=== PATIENT | female | born 1980 | race Caucasian/White ===

== ENCOUNTER → 2019-11-18 | Outpatient (CLI) | payer BC | END | disposition home or self-care (01) | LOC: LABWHC1 13:09 | PROVIDERS: ATTEND Emergency Medicine | DX: Z20.828 Contact with and (suspected) exposure to other viral communicable diseases (principal) | CPT/HCPCS: U0003; C9803 ==

== ENCOUNTER → 2020-07-29 | Outpatient (CLI) | payer BC ==
--- NOTE | 2020-07-31 09:19 | MM ---
Reason for exam: screening (asymptomatic). Baseline mammogram. Physical Findings: Nurse Summary: 1cm nodule in the left breast at 8 o'clock (nurse mj). MG Screening Mammo w CAD Bilateral CC and MLO view(s) were taken. The breast tissue is heterogeneously dense. This may lower the sensitivity of mammography. Focal asymmetry inner central left breast zone C. Nodule left breast. Ultrasound recommended. These results were verbally communicated with the patient and result sheet given to the patient on 07/29/20. ASSESSMENT: Incomplete: need additional imaging evaluation, BI-RAD 0 RECOMMENDATION: Special view mammogram and ultrasound of the left breast.
--- NOTE | 2020-07-31 09:51 | MM ---
Reason for exam: additional evaluation requested from abnormal screening. Physical Findings: Breast exam preformed at baseline screening. MG Work Up Mamm w CAD LT Spot compression CC, spot compression MLO, and LM view(s) were taken of the left breast. Density 10-11 o'clock persists but is less conspicuous. Ultrasound recommended. These results were verbally communicated with the patient and result sheet given to the patient on 07/29/20. ASSESSMENT: Incomplete: need additional imaging evaluation, BI-RAD 0 RECOMMENDATION: Ultrasound of the left breast.
--- NOTE | 2020-07-31 10:08 | USB ---
Reason for exam: additional evaluation requested from abnormal screening. US Breast Workup Limited LT Left limited breast ultrasound including focal area of concern, retroareolar and axilla demonstrates a 1.8 x 1.0 x 1.3cm hypoechoic lesion at 8 o'clock and a 0.8 x 0.3 x 0.7cm mixed lesion at 12 o'clock. These results were verbally communicated with the patient and result sheet given to the patient on 07/29/20. ASSESSMENT: Suspicious, BI-RAD 4 RECOMMENDATION: Ultrasound core biopsy of the left breast. Called Dr. Taylor's office with mammographic findings and has scheduled an appointment for the patient for 08/13/20 at 12:[address] Patel. Biopsy scheduled for 08/20/20 at 1:00. PRELIMINARY REPORT CALLED AND FAXED TO DR. PATEL ON 07/29/20.
== END | disposition home or self-care (01) ==
LOC: RADMAMWWP 13:19
PROVIDERS: ATTEND Family Medicine
DX: Z12.31 Encounter for screening mammogram for malignant neoplasm of breast (principal); R92.8 Other abnormal and inconclusive findings on diagnostic imaging of breast; R92.2 Inconclusive mammogram; N63.24 Unspecified lump in the left breast, lower inner quadrant
CPT/HCPCS: 77065; 77067

== ENCOUNTER → 2020-08-13 | Outpatient (CLI) | payer BC ==
[2020-08-13 12:39] VITALS: BP 126/86; PULSE 71; RESP 18; TEMP 98.2
--- NOTE | 2020-08-13 13:03 | P.GSHP ---
History of Present Illness H&P Date: 08/13/20 Chief Complaint: abnormal left bresat ultrasound Елена is a 40 year old white female seen in consultation for DR. Taylor regarding a left breast ultrasound abnormality. She states that she was able to feel now in her left breast in the area of nodularity ultrasound showed a lesion. Otherwise did not feel any lumps masses or nodules of concern in either breast. She is not complaining of any nipple discharge. She has not had any recent trauma or infection in the breast. She has never had any breast surgery. 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 BCP: 2 years Surgical history: laproscopic knee surgery eye surgery/ tear duct at 1 Medical history: none Social History; 1/2 PPD 20 years alcohol: occasional drugs: none - Constitutional Constitutional: Reports sweats - EENT Comment: as per HPI Eyes: denies blurred vision, denies pain Ears: bilateral: tinnitus Ears, nose, mouth and throat: Denies headache, Denies sore throat - Breasts Breasts: bilateral: as per HPI - Cardiovascular Cardiovascular: Denies chest pain, Denies shortness of breath - Respiratory Respiratory: Denies cough, Denies 7 - Gastrointestinal Gastrointestinal: Denies abdominal pain, Denies diarrhea, Denies nausea, Denies vomiting - Genitourinary (Female) Genitourinary: Denies dysuria, Denies hematuria - Menstruation Menstruation: Reports as per HPI - Musculoskeletal Musculoskeletal: Denies myalgias - Integumentary Integumentary: Reports rash, Denies pruritus - Neurological Neurological: Denies numbness, Denies weakness - Psychiatric Psychiatric: Denies anxiety, Denies depression - Endocrine Endocrine: Denies fatigue, Denies weight change - Hematologic/Lymphatic Comment: none - Allergic/Immunologic Allergic/Immunologic: Reports seasonal allergies Past Medical History History of Any Multi-Drug Resistant Organisms: None Reported Smoking Status: Current every day smoker Medications and Allergies Home Medications Medication Instructions Recorded Confirmed Type Ibuprofen 200 mg PO Q6H PRN 08/13/20 08/13/20 History Multivitamin [Multivitamins Adult 1 each PO DAILY 08/13/20 08/13/20 History Gummies] Allergies Allergy/AdvReac Type Severity Reaction Status Date / Time No Known Allergies Allergy Verified 08/13/20 12:34 Surgical - Exam Vital Signs Temp Pulse Resp BP Pulse Ox 98.2 F 71 18 126/86 99 08/13/20 12:36 08/13/20 12:36 08/13/20 12:36 08/13/20 12:36 08/13/20 12:36 BMI 30.5 - General no distress - Eyes normal ocular movement - ENT no hearing loss - Neck no masses, trachea midline - Respiratory normal expansion, normal respiratory effort, clear to auscultation - Cardiovascular Rhythm: regular Heart Sounds: normal: S1, S2 - Abdomen Abdomen: soft - Integumentary normal turgor - Neurologic no disoriented, no combative - Musculoskeletal normal gait - Psychiatric oriented to time, oriented to person, oriented to place, speech is normal, memory intact Breast exam: BRA: 38D inspection: grade 3 ptosis bilateral, right breast larger than left breast, fungal infection in the right breast palpation: right breast: Multi-positional exam fibrocystic changes, no dominant masses or nodules of concern Right axilla: No adenopathy of concern Fungal infection under right breast Left breast: Multiple positional exam fibrocystic changes, mass approximately 1 x 1 cm in size at 8 o'clock position Her dominant masses or nodules of concern Left axilla: No adenopathy of concern Results Mammogram and ultrasound independently reviewed Assessment and Plan Assessment: Impression: 1. Abnormal left breast mammogram and ultrasound 2. Palpable mass left breast at 8:00 3. Fibrocystic breast changes 4. Fungal infection under right breast Plan: 1. Ultrasound-guided core biopsy left breast ultrasound abnormality corresponds with palpable abnormality 2. Nystatin under right breast 3. Follow-up after core biopsy Risk and benefits of procedure discussed with the patient. She understands and wishes to proceed. This is scheduled for the near future. Cc: Dr. Taylor
== END ==
LOC: WWCWWP 12:19
PROVIDERS: ATTEND Surgery
DX: N60.12 Diffuse cystic mastopathy of left breast (principal); N60.11 Diffuse cystic mastopathy of right breast; B36.9 Superficial mycosis, unspecified; F17.210 Nicotine dependence, cigarettes, uncomplicated

== ENCOUNTER → 2020-08-20 | Day surgery (SDC) | payer BC ==
[2020-08-20 12:12] VITALS: RESP 16; TEMP 98
[2020-08-20 13:56] VITALS: BP 149/88; PULSE 72
--- NOTE | 2020-08-20 14:05 | USB ---
EXAMINATION TYPE: US biopsy breast VAD LT DATE OF EXAM: 08/20/2020 CLINICAL HISTORY: R92.8, Abnormal mammogram. TECHNIQUE: Ultrasound guided core biopsy of left breast. COMPARISON: NONE FINDINGS: The procedure of ultrasound guided core biopsy was explained to the patient. Benefits, alternatives, and risks were discussed. An informed consent was then obtained. The patient was placed in supine positioning for imaging and for the procedure. The overlying skin was prepped and draped in usual sterile fashion. Lidocaine buffered with bicarbonate was used as anesthetic into the skin and subcutaneous tissue up to area of concern in the left breast at 8:00, zone 8. A skin dasia was made with surgical scalpel. Under ultrasound guidance, a 12-gauge vacuum assisted biopsy gun device was used to obtain 3 core samples. Following this, a biopsy clip was left in lesion. The patient tolerated the procedure well without any immediate complication. The patient was kept in the radiology department for short stay after the procedure and then discharged home in stable condition. IMPRESSION: Successful, uncomplicated ultrasound guided core biopsy of area of concern in the left breast. Full pathology results will follow. Pathology Results: Benign LEFT BREAST, 8:00, ULTRASOUND GUIDED CORE BIOPSY: Fibroadenoma. Recommendation Follow up mammogram of the left breast in 6 months. MARTHA
--- NOTE | 2020-08-20 14:15 | MM ---
Reason for exam: additional evaluation requested from abnormal screening. Last mammogram was performed 1 month ago. MG Diagnostic Mammo LT Wo CAD CC and LM view(s) were taken of the left breast. Prior study comparison: July 29, 2020, left breast MG work up mamm w CAD LT. July 29, 2020, bilateral MG screening mammo w CAD. ASSESSMENT: Post procedure mammogram for marker placement RECOMMENDATION: Ultrasound of the left breast in 6 months. PENDING PATHOLOGY RESULTS.
== END ==
LOC: RADUSWWP 12:00
PROVIDERS: ATTEND Surgery
DX: D24.2 Benign neoplasm of left breast (principal); R92.8 Other abnormal and inconclusive findings on diagnostic imaging of breast
CPT/HCPCS: 88305; 77065; 19083; A4648; J2001

== ENCOUNTER → 2020-08-27 | Outpatient (CLI) | payer BC ==
[2020-08-27 14:18] VITALS: BP 119/82; PULSE 79; RESP 18; TEMP 98
--- NOTE | 2020-08-27 14:31 | P.PN ---
Subjective Progress Note Date: 08/27/20 Principal diagnosis: fibroadenoma on core biopsy of the left breast Елена is a 40-year-old white female status post ultrasound-guided core biopsy of the left breast [place] [id number]. Pathology was consistent with a fibroadenoma. She tolerated the procedure with no difficulty. He states that the area is increasing in size and is tender to palpation. Surgical history: Laparoscopic knee surgery I surgery tear duct Medical history: Negative Social history: One half pack per day for 20 years Alcohol: Occasional Drugs: Negative Review of systems: Night sweats HEENT: Negative Breasts: As per HPI Respiratory: Smoker denies cough Cardiovascular: Negative GI: Negative : Negative Musculoskeletal: Negative Neurologic: Negative Psychiatric: Negative Endocrine: Negative Hematologic: Negative ALLERGIES: Seasonal ALLERGIES Objective - Vital Signs Vital signs: Vital Signs Temp 98.0 F 08/27/20 13:54 Pulse 79 08/27/20 13:54 Resp 18 08/27/20 13:54 BP 119/82 08/27/20 13:54 Pulse Ox 99 08/27/20 13:54 Intake & Output 08/26/20 08/27/20 08/27/20 18:59 06:59 18:59 Weight 75.296 kg - Constitutional General appearance: Present: average body habitus - EENT Eyes: Present: EOMI ENT: Present: hearing grossly normal - Neck Neck: Present: normal ROM - Respiratory Respiratory: bilateral: CTA - Cardiovascular Rhythm: regular Heart sounds: normal: S1, S2 - Integumentary Integumentary Comment(s): Biopsy site left breast mild ecchymosis, no evidence of infection or hematoma Integumentary: Present: normal turgor - Musculoskeletal Musculoskeletal: Present: gait normal - Psychiatric Psychiatric: Present: A&O x's 3, appropriate affect, intact judgment & insight - Additional findings Additional findings: Breast examination: Block: 30 8D Inspection: Grade 3 ptosis bilateral, right breast larger than left, fungal infection which was noted prior under the right breast has healed Palpation: From prior exam Right breast: Multiple positional exam fibrocystic changes no dominant masses or nodules of concern Right axilla: No adenopathy of concern Fungal infection is resolved Left breast: Patient has ecchymosis and changes in her biopsy site but no evidence of infection or hematoma remains a persistent 1 x 1 cm in size nodule which is tender at 8:00 consistent with a fibroadenoma Left axilla: No adenopathy of concern Mammogram and ultrasound were reviewed Bilateral mammogram 5721 additional views of the left breast recommended [id number] additional views of the left breast as well as an ultrasound performed an ultrasound core biopsy recommended this was consistent with a fibroadenoma Assessment and Plan Assessment: Impression: 1. Fibrocystic breast changes 2. Fibroadenoma symptomatic increasing in size and tender left breast Plan: 1. Excision fibroadenoma left breast possible onco-plastic tissue transfer, not interested in a mastopexy 2. Left breast mammogram 6 months after resection Risks and benefits of the procedure discussed with the patient. She understands and wishes to proceed. She understands this is not cancer and she does not have to have this removed however she finds it bothersome and is increasing in size and is painful and therefore she wishes it to be removed. Risk include but are not limited to bleeding, infection, reaction to the anesthetic. Cc: Dr. Taylor
== END ==
LOC: WWCWWP 13:54
PROVIDERS: ATTEND Surgery
DX: D24.2 Benign neoplasm of left breast (principal); N60.11 Diffuse cystic mastopathy of right breast; F17.210 Nicotine dependence, cigarettes, uncomplicated; Z98.890 Other specified postprocedural states

== ENCOUNTER → 2020-10-16 | Outpatient (CLI) | payer OTHER ==
--- NOTE | 2020-10-16 11:22 | XR ---
EXAMINATION TYPE: XR hand complete RT DATE OF EXAM: 10/16/2020 COMPARISON: None HISTORY: Contusion right hand TECHNIQUE: 3 view right hand FINDINGS: No acute fractures are evident. Joint spaces are preserved. Soft tissues are normal. Follow up exams can be performed 7-10 days from acute trauma for continued pain. IMPRESSION: 1. Normal three-view right hand
--- NOTE | 2020-10-16 11:24 | XR ---
EXAMINATION TYPE: XR wrist complete RT DATE OF EXAM: 10/16/2020 COMPARISON: None HISTORY: Pain TECHNIQUE: 3 view right wrist FINDINGS: No acute fractures or dislocations are evident. Joint spaces are preserved. Soft tissues ar e normal. If there is pain at the anatomic snuff box, nuclear medicine bone scan could be performed for additio nal evaluation. Follow up exams can be performed 7-10 days from acute trauma for continued pain. IMPRESSION: 1. Normal three-view right wrist
--- NOTE | 2020-10-16 11:26 | XR ---
EXAMINATION TYPE: XR forearm RT DATE OF EXAM: 10/16/2020 COMPARISON: None HISTORY: Pain TECHNIQUE: 2 view right forearm FINDINGS: Radius and ulna appear intact. Joint spaces appear preserved. No acute fracture or dislocat ion is evident. Soft tissues appear normal. Follow up exams can be performed 7-10 days from acute trauma for continued pain. IMPRESSION: 1. Normal 2 view right forearm
== END | disposition home or self-care (01) ==
LOC: RADXRMAIN 10:34
PROVIDERS: ATTEND Emergency Medicine
DX: S60.221A Contusion of right hand, initial encounter (principal); M25.531 Pain in right wrist; M79.631 Pain in right forearm

== ENCOUNTER → 2020-11-06 | Outpatient (CLI) | payer BC ==
[2020-11-06 15:43] VITALS: BP 118/81; PULSE 92; RESP 18; TEMP 98.3
--- NOTE | 2020-11-06 15:50 | P.PN ---
Subjective Progress Note Date: 11/06/20 Principal diagnosis: symptomatic fibroadenoma left breast fibroadenoma on core biopsy of the left breast Елена is a 40-year-old white female status post ultrasound-guided core biopsy of the left breast [place] [address]. Pathology was consistent with a fibroadenoma. She tolerated the procedure with no difficulty. He states that the area is increasing in size and is tender to palpation. She had a bilateral screening mammogram on 5521 this led to additional studies of the left breast. This showed a focal asymmetric and her central left breast lesion. This led to an ultrasound revealing a 1.8-1.3 cm lesion at 8:00 for which core biopsy was recommended. Core biopsy was performed and [id number] which was consistent with a fibroadenoma. Surgical history: Laparoscopic knee surgery I surgery tear duct Medical history: Negative Social history: One half pack per day for 20 years Alcohol: Occasional Drugs: Negative Review of systems: Night sweats HEENT: Negative Breasts: As per HPI Respiratory: Smoker denies cough Cardiovascular: Negative GI: Negative : Negative Musculoskeletal: Negative Neurologic: Negative Psychiatric: Negative Endocrine: Negative Hematologic: Negative ALLERGIES: Seasonal ALLERGIES Objective - Constitutional General appearance: Present: cooperative - EENT Eyes: Present: EOMI ENT: Present: hearing grossly normal - Neck Neck: Present: normal ROM - Respiratory Respiratory: bilateral: CTA - Cardiovascular Rhythm: regular Heart sounds: normal: S1, S2 - Integumentary Integumentary: Present: normal turgor - Musculoskeletal Musculoskeletal: Present: gait normal - Psychiatric Psychiatric: Present: A&O x's 3, appropriate affect, intact judgment & insight - Additional findings Additional findings: Breast exam: Block: 38 DT Inspection: Grade 2/3 ptosis bilateral Palpation: Right breast: Multiple positional exam no dominant masses or nodules of concern fibrocystic changes in Right axilla: No adenopathy of concern Left breast: Multiple positional exam approximately 2 cm firm nodule at the 8 o'clock position no other dominant masses or nodules of concern otherwise fibrocystic changes Left axilla: No adenopathy of concern Assessment and Plan Assessment: Impression: 1. Symptomatic increasing in size fibroadenoma left breast at 8:00 Plan: 1. Removal symptomatic fibroadenoma left breast, possible onco- plastic tissue transfer Risks and benefits of the procedure discussed with the patient. She understands and wishes to proceed.
== END ==
LOC: WWCWWP 15:35
PROVIDERS: ATTEND Surgery
DX: D24.2 Benign neoplasm of left breast (principal); F17.210 Nicotine dependence, cigarettes, uncomplicated

== ENCOUNTER 2020-11-24 12:35 | Day surgery (SDC) | payer BC ==
[2020-11-18 15:38] VITALS: BMI 30.2
[~2020-11-24 12:35] MED LIST: DEXAMETHASONE SOD PHOSPHATE 4 MG/ML 1 ML VIAL IV ONE; HEPARIN SODIUM,PORCINE/PF 5,000 UNIT/0.5 ML SYRINGE SQ PRN; HYDROmorphone 0.5 MG/0.5 ML SYRINGE IVP PRN; LACTATED RINGERS 1,000 ML IV SCH; MIDAZOLAM 2 MG/2 ML VIAL IV PRN; ONDANSETRON 4 MG/2 ML VIAL IVP ONE; Pre Op ABX Message 1 EACH MISC MISCELLANE ONE; SCOPOLAMINE 1.5MG/72HR PATCH TRANSDERM ONE
[2020-11-24] MEDS ORDERED: LIDOCAINE 1% (10MG/ML) FOR IV START INTRADERMA ONE (13:08)
[2020-11-24] MEDS ORDERED: PROPOFOL 10 MG/ML 20 ML VIAL IV ONE (15:36)
[2020-11-24] MEDS ORDERED: KETOROLAC 15 MG/ML 1 ML VIAL ONE (15:36)
[2020-11-24] MEDS ORDERED: LIDOCAINE 1% INJ 10MG/ML (20 ML MDV) ONE (15:36)
[2020-11-24] MEDS ORDERED: MIDAZOLAM 2 MG/2 ML VIAL ONE (15:36)
[2020-11-24] MEDS ORDERED: fentaNYL (PF) 50 MCG/ML 2 ML AMP ONE (15:36)
--- NOTE | 2020-11-24 16:17 | P.OP ---
Date of Procedure: 11/24/20 Preoperative Diagnosis: Fibroadenoma left breast 8:00 Postoperative Diagnosis: Same Procedure(s) Performed: Removal of fibroadenoma Anesthesia: RADHA Surgeon: Marika Cool Estimated Blood Loss (ml): 2 IV fluids (ml): 400 Pathology: other (fibroadenoma left breast) Condition: stable Disposition: same day Indications for Procedure: Painful fibroadenoma increasing in size left breast Operative Findings: Approximately 1 x 1.5 cm soft tissue mass left breast Description of Procedure: Елена is a 40-year-old white female who presented with an increasing painful soft tissue mass in the left breast. Biopsy was consistent with a fibroadenoma. Secondary to increasing size and pain she wished it to be removed. The patient was taken to the operating room and following induction of anesthesia the left breast was prepped and draped in a sterile fashion. Incision was made over the palpable abnormality. Approximately a 1 x 1.5 cm lesion was removed. After assured that hemostasis was attained the deep tissues were closed using 3-0 Vicryl suture. The skin was closed using 4-0 Monocryl. The patient tolerated the procedure in stable condition. It should be noted that marking clips were p laced at the site of the resection prior to closure. All instrument and sponge counts were correct at the end of the case.
--- NOTE | 2020-11-24 16:18 | P.DS ---
Providers Attending physician: Marika Cool Primary care physician: Keara Taylro MD Plan - Discharge Summary Discharge Rx Participant: No New Discharge Prescriptions: No Action Ibuprofen 200 mg PO Q6H PRN PRN Reason: Pain Multivitamin [Multivitamins Adult Gummies] 1 each PO DAILY Discharge Medication List Ibuprofen 200 mg PO Q6H PRN 08/13/20 [History] Multivitamin [Multivitamins Adult Gummies] 1 each PO DAILY 08/13/20 [History] Follow up Appointment(s)/Referral(s): Marika Cool MD [STAFF PHYSICIAN] - 12/03/20 4:00 pm Activity/Diet/Wound Care/Special Instructions: do not drive for 24 hours after discharge may shower after 48 hours wear bra at all times Discharge Disposition: HOME SELF-CARE
[2020-11-24 16:35] VITALS: TEMP 97
[2020-11-24 17:16] VITALS: RESP 18
[2020-11-24 17:28] VITALS: BP 133/67; PULSE 78
== END 2020-11-24 17:39 | disposition home or self-care (01) ==
LOC: OR 12:35
PROVIDERS: ATTEND Surgery
DX: D24.2 Benign neoplasm of left breast (principal); F17.210 Nicotine dependence, cigarettes, uncomplicated
CPT/HCPCS: 81025; 19120; J2250; J1100; J2405; J2001; J3010; J1885; J2704; J1644; 88305

== ENCOUNTER → 2020-12-04 | Outpatient (CLI) | payer BC ==
[2020-12-04 14:19] VITALS: BP 122/87; PULSE 80; RESP 18; TEMP 98
--- NOTE | 2020-12-04 14:22 | P.PN ---
Subjective Progress Note Date: 12/04/20 Principal diagnosis: Left breast fibroadenoma Елена is a 40-year-old white female status post excision of a left breast mass and [id number]. This was a fibroadenoma. She has no complaints related to the procedure. And is doing well. Objective - Vital Signs Vital signs: Vital Signs Temp 98.0 F 12/04/20 14:12 Pulse 80 12/04/20 14:12 Resp 18 12/04/20 14:12 BP 122/87 12/04/20 14:12 Pulse Ox 98 12/04/20 14:12 Intake & Output 12/03/20 12/04/20 12/04/20 18:59 06:59 18:59 Weight 74.843 kg - Constitutional General appearance: Present: cooperative - EENT Eyes: Present: EOMI - Neck Neck: Present: normal ROM - Respiratory Respiratory: bilateral: CTA - Cardiovascular Rhythm: regular Heart sounds: normal: S1, S2 - Integumentary Integumentary Comment(s): Incision clean and dry left breast no evidence of infection or hematoma Assessment and Plan Assessment: Patient status post left breast resection of symptomatic fibroadenoma at this time patient is doing well Plan: Left breast mammogram in 6 months with physician exam at that time CC: Dr. Taylor
== END ==
LOC: WWCWWP 13:48
PROVIDERS: ATTEND Surgery
DX: D24.2 Benign neoplasm of left breast (principal)

== ENCOUNTER → 2021-05-26 | Outpatient (CLI) | payer BC ==
--- NOTE | 2021-05-27 11:01 | MM ---
Reason for exam: clinical finding. Last mammogram was performed 9 months ago. History: Excisional biopsy of the left breast, October 2020. Benign US biopsy breast VAD LT of the left breast, August 20, 2020. Indicated problem(s): pain in the right breast. Physical Findings: A clinical breast exam by your physician is recommended on an annual basis and results should be correlated with mammographic findings. MG Diagnostic Mammo w CAD MICHELLE Bilateral CC and MLO view(s) were taken. Prior study comparison: August 20, 2020, left breast MG diagnostic mammo LT wo CAD. July 29, 2020, left breast MG work up mamm w CAD LT. The breast tissue is heterogeneously dense. This may lower the sensitivity of mammography. Left breast mass has been removed. No significant new findings when compared with previous films. These results were verbally communicated with the patient and result sheet given to the patient on 05/26/21. ASSESSMENT: Benign, BI-RAD 2 RECOMMENDATION: Return to routine screening mammogram schedule for both breasts. Back on schedule.
== END | disposition home or self-care (01) ==
LOC: RADMAMWWP 14:48
PROVIDERS: ATTEND Surgery
DX: R92.8 Other abnormal and inconclusive findings on diagnostic imaging of breast (principal)
CPT/HCPCS: 77066

== ENCOUNTER → 2022-06-09 | Outpatient (CLI) | payer BC ==
[2022-06-09 11:39] VITALS: BP 118/83; PULSE 89; RESP 16; TEMP 97.4
--- NOTE | 2022-06-09 12:14 | P.PN ---
Subjective Progress Note Date: 06/09/22 Principal diagnosis: fibroadenoma left breast Fibroadenoma removed left breast Елена is a 42-year-old white female status post excision of a fibroadenoma from her left breast on . At this time she is doing well, she is not complaining of any new lumps masses or nodules of concern in either breast. She had a bilateral mammogram on 3622 which was BIRADS 1. 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: 2 years Surgical history: laproscopic knee surgery eye surgery/ tear duct at 1 Medical history: none Social History; 1/2 PPD 20 years alcohol: occasional drugs: none - Constitutional Constitutional: Reports sweats - EENT Comment: as per HPI Eyes: denies blurred vision, denies pain Ears: bilateral: tinnitus Ears, nose, mouth and throat: Denies headache, Denies sore throat - Breasts Breasts: bilateral: as per HPI - Cardiovascular Cardiovascular: Denies chest pain, Denies shortness of breath - Respiratory Respiratory: Denies cough - Gastrointestinal Gastrointestinal: Denies abdominal pain, Denies diarrhea, Denies nausea, Denies vomiting - Genitourinary (Female) Genitourinary: Denies dysuria, Denies hematuria - Menstruation Menstruation: Reports as per HPI - Musculoskeletal Musculoskeletal: Denies myalgias - Integumentary Integumentary: Reports rash, Denies pruritus - Neurological Neurological: Denies numbness, Denies weakness - Psychiatric Psychiatric: Denies anxiety, Denies depression - Endocrine Endocrine: Denies fatigue, Denies weight change - Hematologic/Lymphatic Comment: none - Allergic/Immunologic Allergic/Immunologic: Reports seasonal allergies Objective - Vital Signs Vital signs: Vital Signs Temp 97.4 F L 06/09/22 11:37 Pulse 89 06/09/22 11:37 Resp 16 06/09/22 11:37 BP 118/83 06/09/22 11:37 Pulse Ox 99 06/09/22 11:37 FiO2 Intake & Output 06/08/22 06/09/22 06/09/22 18:59 06:59 18:59 Weight 79.832 kg - Constitutional General appearance: Present: cooperative - EENT Eyes: Present: EOMI ENT: Present: hearing grossly normal - Neck Neck: Present: normal ROM - Respiratory Respiratory: bilateral: CTA - Cardiovascular Rhythm: regular Heart sounds: normal: S1, S2 - Gastrointestinal General gastrointestinal: Present: soft - Integumentary Integumentary: Present: normal turgor - Musculoskeletal Musculoskeletal: Present: gait normal - Psychiatric Psychiatric: Present: A&O x's 3, appropriate affect, intact judgment & insight - Additional findings Additional findings: Breast examination: Bra: 38D Inspection: Bilateral grade 3 ptosis Palpation: Right breast: Multiple positional exam fibrocystic changes no dominant masses or nodules of concern Right axilla: No adenopathy of concern Left breast: Multiple positional exam no dominant masses or nodules of concern Left axilla: No adenopathy of concern Assessment and Plan Assessment: Impression: The cystic breast changes No evidence of recurrent fibroadenoma bilateral mammogram [id number] BIRAD 1 Plan: Bilateral mammogram in 1 year with physician exam at that time CC: Tesfaye RAMIREZ
== END ==
LOC: WWCWWP 11:28
PROVIDERS: ATTEND Surgery
DX: N60.19 Diffuse cystic mastopathy of unspecified breast (principal); D24.2 Benign neoplasm of left breast

== ENCOUNTER → 2023-06-01 | Outpatient (CLI) | payer BC ==
--- NOTE | 2023-06-02 08:26 | MM ---
Reason for Exam: Screening (asymptomatic). Last screening mammogram was performed 12 month(s) ago. Patient History: Menarche at age 12. Patient used Hormonal Contraceptives for 3 years. 10/2020, Excisional Biopsy on the Left side. 08/20/2020, Benign Core Biopsy on the left side. Last menstrual period: 05/26/2023 Risk Values: Jeimy 5 year model risk: 1.5%. NCI Lifetime model risk: 11.1%. Prior Study Comparison: 08/20/2020 Left Diagnostic Mammogram, [facility]. 05/26/2021 Bilateral Diagnostic Mammogram, [facility]. 05/30/2022 Bilateral MG screening mammo w CAD, [facility]. Tissue Density: The breasts are heterogeneously dense, which may obscure small masses. Findings: Analyzed By CAD. Asymmetric nodularity inner upper left breast 13 cm from the nipple. Additional views recommended. Benign calcifications seen right breast. Clips from prior biopsy left breast. Overall Assessment: Incomplete: need additional imaging evaluation, BI-RAD 0 Management: Diagnostic Mammogram of the left breast. . Patient should continue monthly self-breast exams. A clinical breast exam by your physician is recommended on an annual basis. This exam should not preclude additional follow-up of suspicious palpable abnormalities. Note on Jeimy scores and lifetime risk: 1. A Jeimy score greater than 3% is considered moderate risk. If this is the case, consider specialist referral to assess eligibility for a risk reducing agent. 2. If overall lifetime risk for the development of breast cancer is 20% or higher, the patient may qualify for future screening with alternating mammogram and breast MRI. Electronically signed and approved by: Jacobo Munroe M.D. Radiologis
== END | disposition home or self-care (01) ==
LOC: RADMAMWWP 09:16
PROVIDERS: ATTEND Surgery
DX: Z12.31 Encounter for screening mammogram for malignant neoplasm of breast (principal)
CPT/HCPCS: 77067

== ENCOUNTER → 2023-06-05 | Outpatient (CLI) | payer BC ==
--- NOTE | 2023-06-05 09:48 | MM ---
Reason for Exam: Additional evaluation requested from abnormal screening. Last screening mammogram was performed less than 1 month ago. Patient History: Menarche at age 12. Patient has no children. Premenopausal. Patient used Hormonal Contraceptives for 3 years. 10/2020, Excisional Biopsy on the Left side. 08/20/2020, Benign Core Biopsy on the left side. Maternal grandmother had ovarian cancer at or over age 50. Last menstrual period: 05/30/2023 Risk Values: Jeimy 5 year model risk: 2.3%. NCI Lifetime model risk: 16.7%. Prior Study Comparison: 07/29/2020 Bilateral Screening Mammogram, [facility]. 07/29/2020 Left Diagnostic Mammogram, [facility]. 08/20/2020 Left Diagnostic Mammogram, [facility]. 05/26/2021 Bilateral Diagnostic Mammogram, [facility]. 05/30/2022 Bilateral MG screening mammo w CAD, [facility]. 06/01/2023 Bilateral MG screening mammo w CAD, [facility]. Tissue Density: Left: The breasts are heterogeneously dense, which may obscure small masses. Findings: Analyzed By CAD. Asymmetric density posterior central left breast on the spot MLO and straight lateral view become less pronounced suggesting superimposition shadow. The medial posterior CC view also become less pronounced; the appearance is similar to some of the older priors. Further ultrasound evaluation recommended. Overall Assessment: Incomplete: need additional imaging evaluation, BI-RAD 0 Management: Diagnostic Breast Ultrasound of the left breast. 8-10 o'clock. Electronically signed and approved by: Antoinette Ibarra M.D. Radiologist
--- NOTE | 2023-06-05 10:26 | USB ---
Reason for Exam: Additional evaluation requested from abnormal screening. Patient History: Menarche at age 12. Patient has no children. Premenopausal. Patient used Hormonal Contraceptives for 3 years. 10/2020, Excisional Biopsy on the Left side. 08/20/2020, Benign Core Biopsy on the left side. Maternal grandmother had ovarian cancer at or over age 50. Risk Values: Jeimy 5 year model risk: 2.3%. NCI Lifetime model risk: 16.7%. Technique: Method: Targeted. Prior Study Comparison: 05/26/2021 Bilateral Diagnostic Mammogram, [facility]. 05/30/2022 Bilateral MG screening mammo w CAD, [facility]. 06/01/2023 Bilateral MG screening mammo w CAD, [facility]. Findings: The medial section of the breast of the left breast, the axilla of the left breast and the retroareolar of the left breast were scanned. Targeted ultrasound medial aspect of the left breast 8-10 o'clock including the subareolar region and axilla. Approximately 4 tiny hypoechoic areas, too small to accurately characterize measuring 4 mm and smaller are demonstrated scattered throughout dense tissues. Tiny cysts are suspected. No suspicious solid mass. Six-month follow-up mammogram recommended. Overall Assessment: Probably benign, BI-RAD 3 Management: Diagnostic Mammogram of the left breast in 6 months. A clinical breast exam by your physician is recommended on an annual basis and results should be correlated with mammographic findings. This exam should not preclude additional follow-up of suspicious palpable abnormalities. Results were given to the patient verbally at the time of exam. Electronically signed and approved by: Antoinette Ibarra M.D. Radiologist
== END | disposition home or self-care (01) ==
LOC: RADMAMWWP 09:02
PROVIDERS: ATTEND Surgery
DX: R92.332 Mammographic heterogeneous density, left breast (principal)
CPT/HCPCS: 77061; 77065

== ENCOUNTER → 2023-06-08 | Outpatient (CLI) | payer BC ==
[2023-06-08 13:29] VITALS: BP 145/80; PULSE 66; RESP 15; TEMP 97.9
--- NOTE | 2023-06-08 13:57 | P.PN ---
Subjective Progress Note Date: 06/08/23 06/09/22 Principal diagnosis: fibroadenoma left breast Fibroadenoma removed left breast Елена is a 43-year-old white female status post excision of a fibroadenoma from her left breast on . At this time she is doing well, she is not complaining of any new lumps masses or nodules of concern in either breast. She had a bilateral mammogram on 06-01-23, and a left breast ultrasound on 06-05-23 BIRAD 3 repeat left breast mammogram in 6 months. 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: 2 years Surgical history: laproscopic knee surgery eye surgery/ tear duct at 1 Medical history: on Celebrex, torn tendons in legs Social History; 1/2 PPD 20 years alcohol: occasional drugs: none - Constitutional Constitutional: Reports sweats - EENT Comment: as per HPI Eyes: denies blurred vision, denies pain Ears: bilateral: tinnitus Ears, nose, mouth and throat: Denies headache, Denies sore throat - Breasts Breasts: bilateral: as per HPI - Cardiovascular Cardiovascular: Denies chest pain, Denies shortness of breath - Respiratory Respiratory: Denies cough - Gastrointestinal Gastrointestinal: Denies abdominal pain, Denies diarrhea, Denies nausea, Denies vomiting - Genitourinary (Female) Genitourinary: Denies dysuria, Denies hematuria - Menstruation Menstruation: Reports as per HPI - Musculoskeletal Musculoskeletal: Denies myalgias - Integumentary Integumentary: Reports rash, Denies pruritus - Neurological Neurological: Denies numbness, Denies weakness - Psychiatric Psychiatric: Denies anxiety, Denies depression - Endocrine Endocrine: Denies fatigue, Denies weight change - Hematologic/Lymphatic Comment: none - Allergic/Immunologic Allergic/Immunologic: Reports seasonal allergies Objective - Vital Signs Vital signs: Vital Signs Temp 97.9 F 06/08/23 13:10 Pulse 66 06/08/23 13:10 Resp 15 06/08/23 13:10 BP 145/80 06/08/23 13:10 Pulse Ox 100 06/08/23 13:10 FiO2 Intake & Output 06/07/23 06/08/23 06/08/23 18:59 06:59 18:59 Weight 78.471 kg - Constitutional General appearance: Present: cooperative - EENT Eyes: Present: EOMI ENT: Present: hearing grossly normal - Neck Neck: Present: normal ROM - Respiratory Respiratory: bilateral: CTA - Cardiovascular Heart sounds: normal: S1, S2 - Integumentary Integumentary: Present: normal turgor - Musculoskeletal Musculoskeletal: Present: gait normal - Psychiatric Psychiatric: Present: A&O x's 3, appropriate affect, intact judgment & insight - Additional findings Additional findings: Breast examination: Bra: 38D Inspection: Bilateral grade 3 ptosis Palpation: Right breast: Multi positional exam fibrocystic changes no dominant masses or nodules of concern Right axilla: No adenopathy of concern Left breast: Multiple positional exam no dominant masses or nodules of concern Left axilla: No adenopathy of concern Assessment and Plan Assessment: Impression: fibro-cystic breast changes No evidence of recurrent fibroadenoma bilateral mammogram 06-01-23, and left breast ultrasound 06-05-23 B[facility] 3 mammogram of left breast in 6 months Plan: left breast mammogram in 6 months with appointment Patient to follow up sooner any concerns CC: Tesfaye RAMIREZ
== END ==
LOC: WWCWWP 12:33
PROVIDERS: ATTEND Surgery
DX: N60.11 Diffuse cystic mastopathy of right breast (principal); Z85.3 Personal history of malignant neoplasm of breast

== ENCOUNTER → 2023-12-07 | Outpatient (CLI) | payer BC ==
--- NOTE | 2023-12-08 09:02 | MM ---
Reason for Exam: Follow-up at short interval from prior study. Last screening mammogram was performed 6 month(s) ago. Patient History: Menarche at age 12. Patient has no children. Premenopausal. Patient used Hormonal Contraceptives for 3 years. 10/2020, Excisional Biopsy on the Left side. 08/20/2020, Benign Core Biopsy on the left side. Maternal grandmother had ovarian cancer at or over age 50. Risk Values: Jeimy 5 year model risk: 2.3%. NCI Lifetime model risk: 16.7%. Prior Study Comparison: 05/30/2022 Bilateral MG screening mammo w CAD, [facility]. 06/01/2023 Bilateral MG screening mammo w CAD, [facility]. 06/05/2023 Left MG 3D work up w/cad , [facility]. Tissue Density: Left: The breasts are heterogeneously dense, which may obscure small masses. Findings: Analyzed By CAD. No evidence for distinct mass or distortion. Asymmetric breast tissue in her left cc view is unchanged. No suspicious microcalcifications. Overall Assessment: Benign, BI-RAD 2 Management: Screening Mammogram of both breasts in 6 months. . Results were given to the patient verbally at the time of exam. Patient should continue monthly self-breast exams. A clinical breast exam by your physician is recommended on an annual basis. This exam should not preclude additional follow-up of suspicious palpable abnormalities. Note on Jeimy scores and lifetime risk: 1. A Jeimy score greater than 3% is considered moderate risk. If this is the case, consider specialist referral to assess eligibility for a risk reducing agent. 2. If overall lifetime risk for the development of breast cancer is 20% or higher, the patient may qualify for future screening with alternating mammogram and breast MRI. Electronically signed and approved by: Jacobo Munroe M.D. Radiologis
== END | disposition home or self-care (01) ==
LOC: RADMAMWWP 09:03
PROVIDERS: ATTEND Surgery
DX: R92.8 Other abnormal and inconclusive findings on diagnostic imaging of breast
CPT/HCPCS: 77061; 77065

== ENCOUNTER → 2023-12-14 | Outpatient (CLI) | payer BC ==
[2023-12-14 08:57] VITALS: BP 119/68; PULSE 84; RESP 17; TEMP 98.3
--- NOTE | 2023-12-14 09:16 | P.PN ---
Subjective Progress Note Date: 12/14/23 Principal diagnosis: fibroadenoma left breast removed 12-14-23 Principal diagnosis: Fibroadenoma removed left breast 2020 Елена is a 43-year-old white female status post excision of a fibroadenoma from her left breast on . At this time she is doing well, she is not complaining of any new lumps masses or nodules of concern in either breast. She had a bilateral mammogram on 06-01-23, and a left breast ultrasound on 06-05-23 BIRAD 3 repeat left breast mammogram in 6 months. Repeat left breast mammogram on 12-07-23 BIRAD 2. She is not complaining of any lumps masses or nodules of concern in either breast. She did have some soreness in the left breast in the upper aspect following the mammogram which is resolving. Her periods have become inconsistent in their nature although they are still occurring on a regular monthly basis. She believes she may be premenopausal. 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 Surgical history: laproscopic knee surgery eye surgery/ tear duct at 1 left breast fibroadenoma 2020 Medical history: on Celebrex, torn tendons in legs Social History; 1/2 PPD 20 years alcohol: occasional drugs: none - Constitutional Constitutional: Reports sweats - EENT Comment: as per HPI Eyes: denies blurred vision, denies pain Ears: bilateral: tinnitus Ears, nose, mouth and throat: Denies headache, Denies sore throat - Breasts Breasts: bilateral: as per HPI - Cardiovascular Cardiovascular: Denies chest pain, Denies shortness of breath - Respiratory Respiratory: Denies cough - Gastrointestinal Gastrointestinal: Denies abdominal pain, Denies diarrhea, Denies nausea, Denies vomiting - Genitourinary (Female) Genitourinary: Denies dysuria, Denies hematuria - Menstruation Menstruation: Reports as per HPI - Musculoskeletal Musculoskeletal: Denies myalgias - Integumentary Integumentary: Reports rash, Denies pruritus - Neurological Neurological: Denies numbness, Denies weakness - Psychiatric Psychiatric: Denies anxiety, Denies depression - Endocrine Endocrine: Denies fatigue, Denies weight change - Hematologic/Lymphatic Comment: none - Allergic/Immunologic Allergic/Immunologic: Reports seasonal allergies Objective - Vital Signs Vital signs: Vital Signs Temp 98.3 F 12/14/23 08:54 Pulse 84 12/14/23 08:54 Resp 17 12/14/23 08:54 BP 119/68 12/14/23 08:54 Pulse Ox 99 12/14/23 08:54 FiO2 Intake & Output 12/13/23 12/14/23 12/14/23 18:59 06:59 18:59 Weight 81.647 kg - Constitutional General appearance: Present: cooperative - EENT Eyes: Present: EOMI ENT: Present: hearing grossly normal - Neck Neck: Present: normal ROM - Respiratory Respiratory: bilateral: CTA - Cardiovascular Rhythm: regular Heart sounds: normal: S1, S2 - Integumentary Integumentary: Present: normal turgor - Psychiatric Psychiatric: Present: A&O x's 3, appropriate affect, intact judgment & insight - Additional findings Additional findings: Breast examination: Bra: 38D Inspection: Bilateral grade 3 ptosis Palpation: Right breast: Multi positional exam fibrocystic changes no dominant masses or nodules of concern Right axilla: No adenopathy of concern Left breast: Multiple positional exam no dominant masses or nodules of concern Left axilla: No adenopathy of concern Fungal infection under both breast Assessment and Plan Assessment: Impression: fibro-cystic breast changes No evidence of recurrent fibroadenoma bilateral mammogram 06-01-23, and left breast ultrasound 06-05-23 BIR[facility] 3 mammogram of left breast in 6 months, done on 12-07-23 BIRAD 2 Plan: bilateral mammogram in 6 months with appointment Patient to follow up sooner any concerns Nystatin to area of concern under both breast CC: Tesfaye RAMIREZ
== END ==
LOC: WWCWWP 08:32
PROVIDERS: ATTEND Surgery
DX: R92.8 Other abnormal and inconclusive findings on diagnostic imaging of breast (principal); N60.11 Diffuse cystic mastopathy of right breast; F17.210 Nicotine dependence, cigarettes, uncomplicated; Z86.018 Personal history of other benign neoplasm; Z98.890 Other specified postprocedural states

== ENCOUNTER → 2024-05-31 | Outpatient (CLI) | payer BC ==
--- NOTE | 2024-05-31 10:01 | MM ---
Reason for Exam: Screening (asymptomatic). Last screening mammogram was performed 12 month(s) ago. Patient History: Menarche at age 12. Patient has no children. Premenopausal. Patient used Hormonal Contraceptives for 3 years. 10/2020, Excisional Biopsy on the Left side. 08/20/2020, Benign Core Biopsy on the left side. Maternal grandmother had ovarian cancer at or over age 50. Risk Values: Jeimy 5 year model risk: 2.4%. NCI Lifetime model risk: 16.4%. Prior Study Comparison: 06/01/2023 Bilateral MG screening mammo w CAD, [facility]. 06/05/2023 Left MG 3D work up w/cad LT, [facility]. 12/07/2023 Left MG 3D diag mammo w/cad LT, [facility]. Tissue Density: The breasts are heterogeneously dense, which may obscure small masses. Findings: Analyzed By CAD. Chronic nodularity on both sides. Surgical clips lower inner quadrant anterior left breast redemonstrated. Nodular asymmetric density central right MLO view middle to posterior depth well seen back on the 2020 exam. Other areas of bilateral asymmetric densities also remain unchanged. There is no suspicious group of microcalcifications or new suspicious mass in either breast. Overall Assessment: Benign, BI-RAD 2 Management: Screening Mammogram of both breasts in 1 year. Patient should continue monthly self-breast exams. A clinical breast exam by your physician is recommended on an annual basis. This exam should not preclude additional follow-up of suspicious palpable abnormalities. Note on Jeimy scores and lifetime risk: 1. A Jeimy score greater than 3% is considered moderate risk. If this is the case, consider specialist referral to assess eligibility for a risk reducing agent. 2. If overall lifetime risk for the development of breast cancer is 20% or higher, the patient may qualify for future screening with alternating mammogram and breast MRI. [facility], , 05/31/2024 9:58 AM. Electronically signed and approved by: Antoinette Ibarra M.D. Radiologist
== END | disposition home or self-care (01) ==
LOC: RADMAMWWP 09:22
PROVIDERS: ATTEND Surgery
DX: Z12.31 Encounter for screening mammogram for malignant neoplasm of breast (principal); R92.333 Mammographic heterogeneous density, bilateral breasts; Z92.0 Personal history of contraception
CPT/HCPCS: 77067

== ENCOUNTER → 2024-06-06 | Outpatient (CLI) | payer BC ==
[2024-06-06 12:20] VITALS: BP 157/85; PULSE 87; RESP 17; TEMP 98.3
--- NOTE | 2024-06-06 12:34 | P.PN ---
Subjective Progress Note Date: 06/06/24 mammogram from 05-31-24 personally reviewed and interpreted Subjective Progress Note Date: 06-06-24 Principal diagnosis: fibroadenoma left breast removed 12-14-23 Principal diagnosis: Fibroadenoma removed left breast 2020 Елена is a 44-year-old white female status post excision of a fibroadenoma from her left breast on . At this time she is doing well, she is not complaining of any new lumps masses or nodules of concern in either breast. She had a bilateral mammogram on 06-01-23, and a left breast ultrasound on 06-05-23 BIR[facility] 3 repeat left breast mammogram in 6 months. Repeat left breast mammogram on 12-07-23 BIRAD 2; bilateral mammogram on 05-31-24 BIRAD 2 She is not complaining of any lumps masses or nodules of concern in either breast. Her periods have become inconsistent in their nature although they are still occurring on a regular monthly basis. She believes she may be premenopausal, she is having night sweats and hot flashes and mood swings she would like to see Dr. 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 Surgical history: laproscopic knee surgery eye surgery/ tear duct at 1 left breast fibroadenoma 2020 Medical history: on Celebrex, torn tendons in legs Social History; 1/2 PPD 20 years alcohol: occasional drugs: none - Constitutional Constitutional: Reports sweats - EENT Comment: as per HPI Eyes: denies blurred vision, denies pain Ears: bilateral: tinnitus Ears, nose, mouth and throat: Denies headache, Denies sore throat - Breasts Breasts: bilateral: as per HPI - Cardiovascular Cardiovascular: Denies chest pain, Denies shortness of breath - Respiratory Respiratory: Denies cough - Gastrointestinal Gastrointestinal: Denies abdominal pain, Denies diarrhea, Denies nausea, Denies vomiting - Genitourinary (Female) Genitourinary: Denies dysuria, Denies hematuria - Menstruation Menstruation: Reports as per HPI - Musculoskeletal Musculoskeletal: Denies myalgias - Integumentary Integumentary: Reports rash, Denies pruritus - Neurological Neurological: Denies numbness, Denies weakness - Psychiatric Psychiatric: Denies anxiety, Denies depression - Endocrine Endocrine: Denies fatigue, Denies weight change - Hematologic/Lymphatic Comment: none - Allergic/Immunologic Allergic/Immunologic: Reports seasonal allergies Objective - Vital Signs Vital signs: Vital Signs Temp 98.3 F 06/06/24 12:18 Pulse 87 06/06/24 12:18 Resp 17 06/06/24 12:18 BP 157/85 06/06/24 12:18 Pulse Ox 99 06/06/24 12:18 FiO2 Intake & Output 06/05/24 06/06/24 06/06/24 18:59 06:59 18:59 Weight 75.75 kg - Constitutional General appearance: Present: cooperative - EENT Eyes: Present: EOMI ENT: Present: hearing grossly normal - Neck Neck: Present: normal ROM - Respiratory Respiratory: bilateral: CTA - Cardiovascular Rhythm: regular Heart sounds: normal: S1, S2 - Integumentary Integumentary: Present: normal turgor - Musculoskeletal Musculoskeletal: Present: gait normal - Psychiatric Psychiatric: Present: A&O x's 3, appropriate affect, intact judgment & insight - Additional findings Additional findings: Breast examination: Bra: 38D Inspection: Bilateral grade 3 ptosis Palpation: Right breast: Multi positional exam fibrocystic changes no dominant masses or nodules of concern Right axilla: No adenopathy of concern Left breast: Multiple positional exam no dominant masses or nodules of concern Left axilla: No adenopathy of concern Assessment and Plan Assessment: Impression: fibro-cystic breast changes No evidence of recurrent fibroadenoma bilateral mammogram 06-01-23, and left breast ultrasound 06-05-23 B[facility] 3 mammogram of left breast in 6 months, done on 12-07-23 BIRAD 2; bilateral mammogram on 05-31-24 BIRAD 2 Plan: bilateral mammogram in May 2025 with appointment Patient to follow up sooner any concerns appointment with Dr [facility] CC: Tesfaye RAMIREZ
== END ==
LOC: WWCWWP 10:39
PROVIDERS: ATTEND Surgery
DX: N60.19 Diffuse cystic mastopathy of unspecified breast (principal)

== ENCOUNTER 2024-07-02 17:39 | Emergency (ER) | payer OTHER, BC ==
[2024-07-02 17:47] VITALS: RESP 16
[2024-07-02] MEDS: KETOROLAC 15 MG/ML 1 ML VIAL IM STA (18:12)
--- NOTE | 2024-07-02 18:38 | XR ---
EXAMINATION TYPE: XR elbow complete RT DATE OF EXAM: 07/02/2024 6:23 PM INDICATION: Patient age:Female; 44 years old; Reason for study: pain; PHH. pain COMPARISON: None TECHNIQUE: The right elbow was examined in AP, lateral, and oblique projections. FINDINGS: No evidence of any acute osseous pathology, joint dislocation, or soft tissue swelling is n oted. No evidence of joint effusion is present. IMPRESSION: No evidence of acute fracture. [facility], , 07/02/2024 6:35 PM
--- NOTE | 2024-07-02 18:47 | ED ---
General Adult HPI - General Chief complaint: Extremity Problem,Nontraumatic Stated complaint: IHS R wrist and elbow pain Time Seen by Provider: 07/02/24 17:50 Source: patient, RN notes reviewed, old records reviewed Mode of arrival: ambulatory Limitations: no limitations - History of Present Illness Initial comments: This is a 44-year-old female who states she lifts about 8 pound parts at work continuously all day long on a 10-hour shift and she has some tenderness at the lateral epicondyle in the right elbow. Patient denies any blunt trauma. Susy ent denies any weakness of the arm he states he cannot do certain things because it is so painful. Patient denies any other problems at this time - Related Data Home Medications Medication Instructions Recorded Confirmed Ibuprofen 200 mg PO Q6H PRN 08/13/20 06/06/24 Multivitamin [Multivitamins Adult 1 each PO DAILY 08/13/20 06/06/24 Gummies] Albuterol Inhaler [Ventolin Hfa 2 puff INHALATION RT-QID 07/02/21 06/06/24 Inhaler] Cetirizine HCl [Zyrtec] 10 mg PO DAILY 07/02/21 06/06/24 Famotidine 10 mg PO DAILY 07/02/21 06/06/24 Previous Rx's Medication Instructions Recorded Nystatin/Triamcin 1 applic TOPICAL TID #30 gram 12/14/23 [Nystatin-Triamcinolone Cream] Ibuprofen [Motrin] 600 mg PO Q6HR PRN #20 tab 07/02/24 Allergies Allergy/AdvReac Type Severity Reaction Status Date / Time No Known Allergies Allergy Verified 06/06/24 12:17 Review of Systems ROS Statement: Those systems with pertinent positive or pertinent negative responses have been documented in the HPI. ROS Other: All systems not noted in ROS Statement are negative. Past Medical History Past Medical History: No Reported History History of Any Multi-Drug Resistant Organisms: None Reported Past Surgical History: Orthopedic Surgery Additional Past Surgical History / Comment(s): right eye surgery age 1. left knee surgery. lump removed L breast Past Anesthesia/Blood Transfusion Reactions: No Reported Reaction Past Psychological History: No Psychological Hx Reported Smoking Status: Current every day smoker Past Alcohol Use History: Occasional Past Drug Use History: None Reported General Exam - General Exam Comments Initial Comments: GENERAL Patient is well-developed and well-nourished. Patient is in mild distress. EYES Patient's pupils are equal and round. Extraocular motion is intact SKIN Unremarkable NEURO The patient is alert and oriented A&Ox3 PYSCH Patient has normal interpersonal interactions. MUSCULOSKELETAL Patient has some tenderness in the right lateral epicondyle Limitations: no limitations Course Vital Signs 07/02/24 17:43 Temperature 97.8 F Pulse Rate 79 Respiratory 16 Rate Blood Pressure 146/97 O2 Sat by Pulse 99 Oximetry Medical Decision Making - Medical Decision Making Was pt. sent in by a medical professional or institution (, JAMES, SPANNER OPERATOR, urgent care, hospital, or usp...) When possible be specific @ -No Did you speak to anyone other than the patient for history (EMS, parent, family, police, friend...)? What history was obtained from this source @ -No Did you review nursing and triage notes (agree or disagree)? Why? @ -I reviewed and agree with nursing and triage notes Were old charts reviewed (outside hosp., previous admission, EMS record, old EKG, old radiological studies, urgent care reports/EKG's, usp records)? Report findings @ -No old charts were reviewed Differential Diagnosis? @ -Differential Musculoskeletal Muscular strain, contusion, ligament sprain, fracture, arthritis, septic arthritis, bursitis, cellulitis, muscle spasm, nerve compression, DVT, arterial occlusion, herpes zoster, electrolyte abnormality, tumor.... This is not meant to be in all inclusive list EKG interpreted by me (3pts min.). @ -As above X-rays interpreted by me (1pt min.). @ -X-ray of the elbow shows no acute abnormality CT interpreted by me (1pt min.). @ -None done U/S interpreted by me (1pt. min.). @ -None done What testing was considered but not performed or refused? (CT, X-rays, U/S, labs)? Why? @ -None What meds were considered but not given or refused? Why? @ -None Did you discuss the management of the patient with other professionals (professionals i.e. JAMES Rodriges, SPANNER OPERATOR, lab, RT, psych nurse, social media specialist, intellectual property lawyer, teacher, industrial relations officer, manager case management)? Give summary @ -No Was smoking cessation discussed for >3mins.? @ -No Was critical care preformed (if so, how long)? @ -No Were there social determinants of health that impacted care today? How? (Homelessness, low income, unemployed, alcoholism, drug addiction, transportation, low edu. Level, literacy, decrease access to med. care, long-term, rehab)? @ -No Was there de-escalation of care discussed even if they declined (Discuss DNR or withdrawal of care, Hospice)? DNR status @ -No What co-morbidities impacted this encounter? (DM, HTN, Smoking, COPD, CAD, Cancer, CVA, ARF, Chemo, Hep., AIDS, mental health diagnosis, sleep apnea, mo rbid obesity)? @ -None Was patient admitted / discharged? Hospital course, mention meds given and route, prescriptions, significant lab abnormalities, going to OR and other pertinent info. @ -Patient was given some Lodine for pain. Patient refused the Toradol shot. Patient will be sent home with instructions to purchase a brace for tennis elbow. Patient also be given a prescription for Motrin 600 Undiagnosed new problem with uncertain prognosis? @ -No Drug Therapy requiring intensive monitoring for toxicity (Heparin, Nitro, Insulin, Cardizem)? @ -No Were any procedures done? @ -No Diagnosis/symptom? @ -Lateral epicondylitis Acute, or Chronic, or Acute on Chronic? @ -Acute Uncomplicated (without systemic symptoms) or Complicated (systemic symptoms)? @ -Default Side effects of treatment? @ -No Exacerbation, Progression, or Severe Exacerbation? @ -No Poses a threat to life or bodily function? How? (Chest pain, [place], [place], pneumonia, PE, COPD, DKA, ARF, appy, cholecystitis, CVA, Diverticulitis, Homicidal, Suicidal, threat to staff... and all critical care pts) @ -No Disposition Clinical Impression: Lateral epicondylitis of right elbow Disposition: HOME SELF-CARE Condition: Good Instructions (If sedation given, give patient instructions): Tennis Elbow (ED) Prescriptions: Ibuprofen [Motrin] 600 mg PO Q6HR PRN #20 tab PRN Reason: For pain Is patient prescribed a controlled substance at d/c from ED?: No Referrals: Hernan Eugene MD [Primary Care Provider] - 1-2 days Time of Disposition: 18:47
[2024-07-02] MEDS: ETODOLAC 400 MG TAB PO STA (18:51)
[2024-07-02 18:58] VITALS: BP 139/86; PULSE 72; TEMP 98
== END 2024-07-02 19:23 | disposition home or self-care (01) ==
LOC: EC 17:39
DX: M77.11 Lateral epicondylitis, right elbow (principal); F17.200 Nicotine dependence, unspecified, uncomplicated
CPT/HCPCS: 99283